=== PATIENT | male | born 1950 | race Two or more races ===

== ENCOUNTER 2020-07-19 10:13 | Outpatient (CLI) | payer OTHER | END 2020-07-19 10:33 | disposition home or self-care (01) | LOC: NUCLEAR 10:13 | PROVIDERS: ATTEND Psychiatry & Neurology Clinical Neurophysiology | DX: G60.3 Idiopathic progressive neuropathy (principal); I87.2 Venous insufficiency (chronic) (peripheral) ==

== ENCOUNTER 2022-01-03 09:32 | Outpatient (CLI) | payer OTHER | END 2022-01-03 09:34 | disposition home or self-care (01) | LOC: RAD 09:32 | PROVIDERS: ATTEND Family Medicine | DX: I73.9 Peripheral vascular disease, unspecified (principal) ==

== ENCOUNTER 2022-01-03 09:57 | Outpatient (CLI) | payer OTHER | END 2022-01-03 10:02 | disposition home or self-care (01) | LOC: NUCLEAR 09:57 | PROVIDERS: ATTEND Family Medicine | DX: I73.9 Peripheral vascular disease, unspecified (principal) ==

== ENCOUNTER 2022-01-07 08:58 | Outpatient (CLI) | payer OTHER | END 2022-01-07 08:59 | disposition home or self-care (01) | LOC: NUCLEAR 08:58 | PROVIDERS: ATTEND Family Medicine | DX: I87.2 Venous insufficiency (chronic) (peripheral) (principal) ==

== ENCOUNTER → 2025-09-29 | Outpatient (CLI) | payer OTHER | END | disposition home or self-care (01) | LOC: RAD 12:24 | PROVIDERS: ATTEND Family Medicine | DX: R05.9 Cough, unspecified (principal); A90 Dengue fever [classical dengue] ==